=== PATIENT | male | born 1995 | race Caucasian/White ===

== ENCOUNTER 2017-06-02 16:29 | Outpatient (CLI) | payer BC, OTHER ==
--- NOTE | 2017-06-05 09:18 | MRI ---
MRI LEFT SHOULDER WITHOUT CONTRAST: Date: 06/02/17 HISTORY: N25.512, left shoulder pain. FINDINGS: Biceps Tendon: Extraarticular and intraarticular biceps tendon is normal. Glenoid Labrum: Intact. Labrum: There is a posterior labral tear with a paralabral cyst formation. This tear occurs at approximately 9 o'clock. Rotator Cuff: There is a bursal surface 20-30% thickness tear of the anterior fibers of the supraspinatus for an AP width of approximately 5.0 mm. There is associated puddling of fluid within the subacromial/subdelto id bursa. Muscles: Muscle signal and bulk is normal. Evaluation of what appears to be a fibroxanthoma of the proximal humerus is not well evaluated on thi s examination as this is a shoulder MRI and not a humerus MRI. IMPRESSION: 1. Posterior labral tear at 9 o'clock with paralabral cyst. 2. 20-30% thickness bursal surface tear of the anterior fibers of supraspinatus tendon measuring 5.0 mm in AP dimension with puddling of fluid within the subacromial/subdeltoid bursa. POS: [facility]
== END 2017-06-02 16:30 | disposition home or self-care (01) ==
LOC: MRI 16:29
PROVIDERS: ATTEND Orthopaedic Surgery
DX: M25.512 Pain in left shoulder (principal); S43.402A Unspecified sprain of left shoulder joint, initial encounter; M75.102 Unspecified rotator cuff tear or rupture of left shoulder, not specified as traumatic